=== PATIENT | female | born 1985 | race Hispanic/Latino ===

== ENCOUNTER 2020-02-12 08:05 | Emergency (ER) | payer MEDICAID ==
[2020-02-12 08:16] VITALS: BP 143/83
--- NOTE | 2020-02-12 09:20 | XRay Report ---
Right ankle-3 views Right foot-3 views INDICATION: right ankle/foot pain. COMPARISON: None. IMPRESSION: Moderate soft tissue swelling along the lateral aspect of the hindfoot/midfoot. There is a comminuted fracture of the calcaneus near the level of the anterior calcaneal process extending to the calcaneocuboid articulation with slight lateral displacement of a crescentic fracture fragment. There is mild underlying great toe MTP DJD with subchondral cystic change at the base of the proxima l phalanx. Signer Name: Benito Gonzales MD Signed: 02/12/2020 9:16 AM Workstation Name: [id number]
[2020-02-12] MEDS ORDERED: NEOMY 3.5 MG/BACIT 400 UNITS/POLY B 5000 UNITS/GM OINT PACKET TP ONE (09:40)
[2020-02-12] MEDS ORDERED: HYDROcodone/ACETAMINOPHEN 5-325 MG TAB PO ONE (09:40)
--- NOTE | 2020-02-12 10:06 | Emergency Department Report ---
ED Lower Extremity HPI - General Chief Complaint: Extremity Injury, Lower Stated Complaint: RT FOOT AND ANKLE PAIN Time Seen by Provider: 02/12/20 09:32 Source: patient Mode of arrival: Wheelchair Limitations: No Limitations - History of Present Illness Initial Comments: Patient is a 35-year-old female presents emergency room with complaints of a fall that occurred last night. Patient states that she misstepped getting off of a curb and had an eversion injury of her ankle and foot. Patient states that she also has abrasion to her right foot, right knee, right elbow. She denies any pain in the right knee or elbow. She states that her pain is mostly in her foot and her ankle. She states that she has ambulated since the end incident. She states her tetanus immunization has been within the last 5 years. She denies ever injuring these joints in the past. She states she has a past medical history of chronic back pain. No allergies to medications. Last menstrual cycle 2 weeks ago. She states that she did not drive herself to the emergency department. - Related Data Previous Rx's Medication Instructions Recorded Last Taken Type HYDROcodone/APAP 5-325 [[place] 1 each PO Q6HR PRN #12 tablet 02/12/20 Unknown Rx 5/325] Ibuprofen [Motrin 600 MG tab] 600 mg PO Q8H PRN #14 tablet 02/12/20 Unknown Rx Neomycin/Bacitracin/Polymyxinb 1 applicatio TP BID #1 oint...g. 02/12/20 Unknown Rx [Triple Antibiotic Ointment] Allergies Allergy/AdvReac Type Severity Reaction Status Date / Time No Known Allergies Allergy Unverified 02/12/20 08:14 ED Review of Systems ROS: Stated complaint: RT FOOT AND ANKLE PAIN Other details as noted in HPI Comment: All other systems reviewed and negative ED Past Medical Hx - Past Medical History Previous Medical History?: No - Surgical History Past Surgical History?: Yes Additional Surgical History: C section. reconstructive surgeries to face - Medications Home Medications: Home Medications Medication Instructions Recorded Confirmed Last Taken Type HYDROcodone/APAP 5-325 [[place] 1 each PO Q6HR PRN #12 tablet 02/12/20 Unknown Rx 5/325] Ibuprofen [Motrin 600 MG tab] 600 mg PO Q8H PRN #14 tablet 02/12/20 Unknown Rx Neomycin/Bacitracin/Polymyxinb 1 applicatio TP BID #1 oint...g. 02/12/20 Unknown Rx [Triple Antibiotic Ointment] ED Physical Exam - General Limitations: No Limitations General appearance: alert, in no apparent distress - Head Head exam: Present: atraumatic, normocephalic - Eye Eye exam: Present: normal appearance - ENT ENT exam: Present: mucous membranes moist - Respiratory Respiratory exam: Absent: respiratory distress, accessory muscle use - Extremities Exam Extremities exam: Present: other (edema, ecchymosis, and TTP to the right lateral foot and ankle, decreased ROM of the right ankle/foot secondary to pain, FROM of the right toes, there is an abrasion to the right dorsal foot just below the right little toe, there is an abrasion to the right knee and a very small abrasion to the right elbow, FROM of the right knee and right elbow with no pain, no bony ttp, no deformity, no edema, pt is neurovascularly intact througho ut) - Neurological Exam Neurological exam: Present: alert, oriented X3 - Psychiatric Psychiatric exam: Present: normal affect, normal mood - Skin Skin exam: Present: warm, dry ED Course Vital Signs 02/12/20 02/12/20 02/12/20 08:15 09:53 10:32 Temperature 98.1 F Pulse Rate 98 H Respiratory 16 18 18 Rate Blood Pressure 143/83 [Right] O2 Sat by Pulse 96 Oximetry ED Lower Extremity MDM - Radiology Data Radiology results: report reviewed Right ankle-3 views Right foot-3 views INDICATION: right ankle/foot pain. COMPARISON: None. IMPRESSION: Moderate soft tissue swelling along the lateral aspect of the hindfoot/midfoot. There is a comminuted fracture of the calcaneus near the level of the anterior calcaneal process extending to the calcaneocuboid articulation with slight lateral displacement of a crescentic fracture fragment. There is mild underlying great toe MTP DJD with subchondral cystic change at the base of the proximal phalanx. Signer Name: Benito Gonzales MD Signed: 02/12/2020 9:16 AM Workstation Name: [id number] Transcribed By: WENCESLAO Dictated By: Benito Gonzales MD Electronically Authenticated By: Benito Gonzales MD Signed Date/Time: 02/12/20915 DD/ 3 TD/TT: - Medical Decision Making Patient is a 35-year-old female presents emergency room with complaints of a fall that occurred last night. Patient states that she misstepped getting off of a curb and had an eversion injury of her ankle and foot. Patient states that she also has abrasion to her right foot, right knee, right elbow. She denies any pain in the right knee or elbow. She states that her pain is mostly in her foot and her ankle. She states that she has ambulated since the end incident. She states her tetanus immunization has been within the last 5 years. She denies ever injuring these joints in the past. She states she has a past medical history of chronic back pain. No allergies to medications. Last menstrual cycle 2 weeks ago. She states that she did not drive herself to the emergency department. VSS. on exam: edema, ecchymosis, and TTP to the right lateral foot and ankle, decreased ROM of the right ankle/foot secondary to pain, FROM of the right toes, there is an abrasion to the right dorsal foot just below the right little toe, there is an abrasion to the right knee and a very small abrasion to the right elbow, FROM of the right knee and right elbow with no pain, no bony ttp, no deformity, no edema, pt is neurovascularly intact thr oughout. XR right foot/ankle: Moderate soft tissue swelling along the lateral aspect of the hindfoot/midfoot. There is a comminuted fracture of the calcaneus near the level of the anterior calcaneal process extending to the calcaneocuboid articulation with slight lateral displacement of a crescentic fracture fragment. There is mild underlying great toe MTP DJD with subchondral cystic change at the base of the proximal phalanx. Patient given pain medication while in the ED as she did not drive and symptoms improved. Patient placed in short leg posterior splint by nurse and remained neurovascularly intact. Patient given crutches and advised not to bear weight. Patient given prescription for [place], triple abx ointment and ibuprofen. Wound care to her abrasions was performed by nurse. Advised patient Please use medication as prescribed. Do not drive, operate machinery, or work while taking pain medication. Please keep areas clean, dry, covered. May wash with antibacterial soap and water and immediately dry. No hot tub, no pool, no lee water. Please do not bear weight on your right leg until you have been cleared by an orthopedic doctor. Please follow-up with orthopedic doctor. It is very important that you follow-up with orthopedic doctor. Return to emergency room for any new or worsening symptoms. I was called by the pharmacist that patient is currently in a Suboxone program, I advised pharmacist to please discard of [place] prescription and give patient Tylenol with codeine instead - Differential Diagnosis strain, sprain, fx, dislocation, contusion Critical care attestation.: If time is entered above; I have spent that time in minutes in the direct care of this critically ill patient, excluding procedure time. ED Disposition Clinical Impression: Multiple abrasions, Pain in joint involving right ankle and foot Fracture of right calcaneus Qualifiers: Encounter type: initial encounter Calcaneus location: anterior process Fracture type: closed Fracture alignment: displaced Qualified Code(s): S92.021A - Displaced fracture of anterior process of right calcaneus, initial encounter for closed fracture Disposition: TO HOME OR SELFCARE Is pt being admited?: No Does the pt Need Aspirin: No Condition: Stable Instructions: Calcaneal Fracture (ED), Abrasion (ED) Additional Instructions: Please use medication as prescribed. Do not drive, operate machinery, or work while taking pain medication. Please keep areas clean, dry, covered. May wash with antibacterial soap and water and immediately dry. No hot tub, no pool, no lee water. Please do not bear weight on your right leg until you have been cleared by an orthopedic doctor. Please follow-up with orthopedic doctor. It is very important that you follow-up with orthopedic doctor. Return to emergency room for any new or worsening symptoms. Prescriptions: Ibuprofen [Motrin 600 MG tab] 600 mg PO Q8H PRN #14 tablet PRN Reason: Pain, Moderate (4-6) HYDROcodone/APAP 5-325 [[place] 5/325] 1 each PO Q6HR PRN #12 tablet PRN Reason: Pain , Severe (7-10) Neomycin/Bacitracin/Polymyxinb [Triple Antibiotic Ointment] 1 applicatio TP BID #1 oint...g. Referrals: PRIMARY MD DANIELLE [Primary Care Provider] - 3-5 Days OZIEL WELCH MD [Staff Physician] - 3-5 Days [facility] [Provider Group] - 3-5 Days Time of Disposition: 10:07 Print Language: SINHALA
== END 2020-02-12 10:31 | disposition home or self-care (01) ==
LOC: ED 08:05
DX: S92.001A Unspecified fracture of right calcaneus, initial encounter for closed fracture (principal); T07.XXXA Unspecified multiple injuries, initial encounter; Z98.890 Other specified postprocedural states; Z79.899 Other long term (current) drug therapy; W17.89XA Other fall from one level to another, initial encounter; Y93.89 Activity, other specified; Y92.89 Other specified places as the place of occurrence of the external cause; Y99.8 Other external cause status
CPT/HCPCS: 29515; 73610; 73630; 99283; A6250

== ENCOUNTER 2020-02-24 22:30 | Emergency (ER) | payer MEDICAID ==
--- NOTE | 2020-02-25 00:41 | XRay Report ---
RIGHT TIB-FIB 2 VIEWS INDICATION / CLINICAL INFORMATION: Pain. COMPARISON: None available. FINDINGS: BONES/JOINT(S): No acute fracture or subluxation. No significant degenerative changes. SOFT TISSUES: No significant abnormality. ADDITIONAL FINDINGS: None. Signer Name: Koby Leblanc MD Signed: 02/25/2020 12:37 AM Workstation Name: [id number]
--- NOTE | 2020-02-25 00:42 | XRay Report ---
RIGHT FOOT 3 VIEW INDICATION / CLINICAL INFORMATION: right heel pain. COMPARISON: Right ankle radiographs on 02/22/2020 FINDINGS: BONES/JOINT(S): Previously demonstrated anterior calcaneal process fracture appears unchanged. No new acute fracture or adverse change from the prior exam. SOFT TISSUES: No significant abnormality. ADDITIONAL FINDINGS: None. Signer Name: Koby Leblanc MD Signed: 02/25/2020 12:37 AM Workstation Name: [id number]
--- NOTE | 2020-02-25 01:13 | XRay Report ---
RIGHT SHOULDER 3 VIEWS INDICATION / CLINICAL INFORMATION: right shoulder pain. COMPARISON: None available. FINDINGS: BONES/JOINT(S): No acute fracture or subluxation. No significant degenerative changes. SOFT TISSUES: No significant abnormality. ADDITIONAL FINDINGS: None. Signer Name: Koby Leblanc MD Signed: 02/25/2020 1:09 AM Workstation Name: [id number]
[2020-02-25 01:53] VITALS: BP 122/70
--- NOTE | 2020-02-25 02:50 | Cat Scan Report ---
CT head/brain wo con INDICATION: Loss of consciousness.. TECHNIQUE: Routine CT head without contrast. All CT scans at this location are performed using CT dos e reduction for ALARA by means of automated exposure control. COMPARISON: None. FINDINGS: BRAIN / INTRACRANIAL CONTENTS: No acute hemorrhage, mass effect, midline shift, or hydrocephalus. No appreciable acute large territorial or lacunar infarct. No chronic infarct or focal atrophy. Normal b rain volume and ventricular/sulcal size for age. ORBITS: No significant abnormality of visualized orbits. SINUSES / MASTOIDS: No significant abnormality of visualized sinuses and mastoid air cells. ADDITIONAL FINDINGS: None. IMPRESSION: 1. No acute intracranial abnormality. Signer Name: Koby Leblanc MD Signed: 02/25/2020 2:46 AM Workstation Name: [id number]
--- NOTE | 2020-02-25 02:51 | Cat Scan Report ---
CT CERVICAL SPINE WITHOUT CONTRAST INDICATION: Loss of consciousness, right arm weakness. TECHNIQUE: Axial CT images of the spine were obtained. Sagittal and coronal reformatted images were produced. Al l CT scans at this location are performed using CT dose reduction for ALARA by means of automated exp osure control. COMPARISON: None available. FINDINGS: ACUTE FRACTURE(S) OR SUBLUXATION: None. SPINAL DEGENERATIVE CHANGES: There is mild degenerative disc disease at C5-6 with reactive endplate o steophyte formation. There is no appreciable significant spinal canal or neural foraminal narrowing. PARASPINAL SOFT TISSUES: No soft tissue swelling or other acute abnormalities. ADDITIONAL FINDINGS: No significant additional findings. IMPRESSION: 1. No acute fracture or subluxation in the spine in neutral position. Signer Name: Koby Leblanc MD Signed: 02/25/2020 2:47 AM Workstation Name: [id number]
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
== END 2020-02-25 03:56 | disposition home or self-care (01) ==
LOC: ED 22:30
DX: T71.9XXA Asphyxiation due to unspecified cause, initial encounter (principal); M50.20 Other cervical disc displacement, unspecified cervical region; R20.0 Anesthesia of skin; F17.200 Nicotine dependence, unspecified, uncomplicated; Z98.890 Other specified postprocedural states; Z79.1 Long term (current) use of non-steroidal anti-inflammatories (NSAID); Z79.899 Other long term (current) drug therapy; X58.XXXA Exposure to other specified factors, initial encounter; Y93.89 Activity, other specified; Y92.89 Other specified places as the place of occurrence of the external cause; Y99.8 Other external cause status
CPT/HCPCS: 70450; 72125; 93005

== ENCOUNTER 2020-03-08 18:51 | Emergency (ER) | payer MEDICAID ==
[2020-03-09] MEDS ORDERED: IBUPROFEN 600 MG TAB PO ONE (04:40)
[2020-03-09] MEDS ORDERED: SULFAMETHOXAZOLE/TRIMETHOPRIM 800/160MG DS TAB PO ONE (04:40)
[2020-03-09] MEDS ORDERED: BUTALB/ACETAMINOPHEN/CAFFEINE TAB PO ONE (04:40)
[2020-03-09] MEDS ORDERED: ONDANSETRON 4 MG ODT TAB PO ONE (04:41)
--- NOTE | 2020-03-09 04:45 | Emergency Department Report ---
ED General Adult HPI - General Chief complaint: Wound/Laceration Stated complaint: POSS INSECT BITE Source: patient Mode of arrival: Ambulatory Limitations: No Limitations - History of Present Illness Initial comments: Patient is a 35-year-old white female with a history of chronic back pain who presents to the ED with acute onset persistent painful swollen erythematous maculopapular nonfluctuant rash on the left frontal scalp for the last 3 days. Patient also complains of headache and anterior left cervical lymph node pain. Patient states that prior to arrival in the ED, the rash was draining purulent discharge. Patient denies change in vision, dizziness, syncope, chest pain, shortness of breath, sore throat, nausea and vomiting, fever, chills, cough, seizures, nasal and sinus congestion, traumatic injury or fall and back pain or abdominal pain. MD Complaint: Frontal scal erythematous painful swollen rash -: Sudden, days(s) (3) Location: head, face Radiation: non-radiation Severity scale (0 -10): 8 Quality: aching, sharp Consistency: constant Improves with: none Worsens with: none Associated Symptoms: denies other symptoms, headaches, loss of appetite, rash (Erythematous maculopapular nonfluctuant tender rash on the left frontal scalp). denies: confusion, chest pain, cough, diaphoresis, fever/chills, malaise, nausea/vomiting, shortness of breath, syncope, weakness, other Treatments Prior to Arrival: none - Related Data Previous Rx's Medication Instructions Recorded Last Taken Type HYDROcodone/APAP 5-325 [Laurens 1 each PO Q6HR PRN #12 tablet 02/12/20 Unknown Rx 5/325] Neomycin/Bacitracin/Polymyxinb 1 applicatio TP BID #1 oint...g. 02/12/20 Unknown Rx [Triple Antibiotic Ointment] Acetaminophen/Codeine [Tylenol 1 tab PO Q6H PRN #10 tab 03/09/20 Unknown Rx /Codeine # 3 tab] Ibuprofen [Motrin 600 MG tab] 600 mg PO Q8H PRN #30 tablet 03/09/20 Unknown Rx Sulfamethoxazole/Trimethoprim 1 each PO Q12H #20 tablet 03/09/20 Unknown Rx [Bactrim DS TAB] Allergies Allergy/AdvReac Type Severity Reaction Status Date / Time No Known Allergies Allergy Unverified 02/12/20 08:14 ED Review of Systems ROS: Stated complaint: POSS INSECT BITE Other details as noted in HPI Constitutional: denies: chills, fever Eyes: denies: eye pain, eye discharge, vision change ENT: other (Left supraorbital painful erythematous maculopapular rash). denies: ear pain, throat pain Respiratory: denies: cough, shortness of breath, wheezing Cardiovascular: denies: chest pain, palpitations Endocrine: no symptoms reported Gastrointestinal: denies: abdominal pain, nausea, diarrhea Genitourinary: denies: urgency, dysuria, discharge Musculoskeletal: denies: back pain, joint swelling, arthralgia Skin: rash (Erythematous maculopapular rash on left supraorbital area with pain), change in color. denies: lesions Neurological: denies: headache, weakness, paresthesias Psychiatric: denies: anxiety, depression Hematological/Lymphatic: denies: easy bleeding, easy bruising ED Past Medical Hx - Past Medical History Previous Medical History?: Yes Additional medical history: Spine Problems - Surgical History Additional Surgical History: C section, Tonsils, Adennoids, Right knee. reconstructive surgeries to face - Social History Smoking Status: Current Every Day Smoker Substance Use Type: None - Medications Home Medications: Home Medications Medication Instructions Recorded Confirmed Last Taken Type HYDROcodone/APAP 5-325 [Laurens 1 each PO Q6HR PRN #12 tablet 02/12/20 Unknown Rx 5/325] Neomycin/Bacitracin/Polymyxinb 1 applicatio TP BID #1 oint...g. 02/12/20 Unknow n Rx [Triple Antibiotic Ointment] Acetaminophen/Codeine [Tylenol 1 tab PO Q6H PRN #10 tab 03/09/20 Unknown Rx /Codeine # 3 tab] Ibuprofen [Motrin 600 MG tab] 600 mg PO Q8H PRN #30 tablet 03/09/20 Unknown Rx Sulfamethoxazole/Trimethoprim 1 each PO Q12H #20 tablet 03/09/20 Unknown Rx [Bactrim DS TAB] ED Physical Exam - General Limitations: No Limitations General appearance: alert, in no apparent distress - Head Head exam: Present: other (Palpable left supraorbital erythematous maculopapular nonfluctuant rash with localized tenderness) - Eye Eye exam: Present: normal appearance, PERRL, EOMI Pupils: Present: normal accommodation - ENT ENT exam: Present: normal exam, normal orophraynx, mucous membranes moist, TM's normal bilaterally, normal external ear exam - Neck Neck exam: Present: normal inspection, full ROM - Respiratory Respiratory exam: Present: normal lung sounds bilaterally. Absent: respiratory distress, wheezes, rales, rhonchi, chest wall tenderness, accessory muscle use - Cardiovascular Cardiovascular Exam: Present: regular rate, normal rhythm, normal heart sounds. Absent: systolic murmur, diastolic murmur, rubs, gallop - GI/Abdominal GI/Abdominal exam: Present: soft, normal bowel sounds. Absent: tenderness, guarding, rebound, hyperactive bowel sounds, organomegaly - Extremities Exam Extremities exam: Present: normal inspection, full ROM, normal capillary refill - Back Exam Back exam: Present: normal inspection, full ROM. Absent: tenderness, CVA tenderness (R), CVA tenderness (L), muscle spasm, paraspinal tenderness, vertebral tenderness - Neurological Exam Neurological exam: Present: alert, oriented X3, CN II-XII intact, normal gait, reflexes normal - Psychiatric Psychiatric exam: Present: normal affect, normal mood - Skin Skin exam: Present: warm, dry, intact, rash (Erythematous maculopapular nonfluctuant tender rash on left supraorbital area), erythema ED Course Vital Signs 03/08/20 03/09/20 22:13 05:57 Temperature 98.2 F 98.3 F Pulse Rate 88 75 Respiratory 18 18 Rate Blood Pressure 124/60 Blood Pressure 122/70 [Left] O2 Sat by Pulse 94 98 Oximetry ED Medical Decision Making - Medical Decision Making This is a 35-year-old white female with a history of chronic back pain who presents to the ED with acute onset persistent painful swollen erythematous maculopapular nonfluctuant rash on the left frontal scalp for the last 3 days. Patient also complains of headache and anterior left cervical lymph node pain. Patient states that prior to arrival in the ED, the rash was draining purulent discharge. In the ED, patient is alert and oriented x3 and is not in distress. Patient was treated for pain in the ED and also given initial oral antibiotics. Patient is hemodynamically stable in the ED. Patient will discharge home on pain medications and oral antibiotics and was advised to follow-up with her p rimary care physician in 7 to 10 days for reevaluation or return to the ED immediately if symptoms get worse. - Differential Diagnosis Acute folliculitis; facial cellulitis; abscess; Critical care attestation.: If time is entered above; I have spent that time in minutes in the direct care of this critically ill patient, excluding procedure time. ED Disposition Clinical Impression: Facial cellulitis, Acute folliculitis Disposition: TO HOME OR SELFCARE Is pt being admited?: No Does the pt Need Aspirin: No Condition: Stable Instructions: Cellulitis (ED), Folliculitis (ED) Additional Instructions: Take medication with food, drink plenty of fluids and follow-up with your primary care physician in 7 to 10 days for reevaluation. Return to the ED immediately if symptoms get worse. Prescriptions: Sulfamethoxazole/Trimethoprim [Bactrim DS TAB] 1 each PO Q12H #20 tablet Ibuprofen [Motrin 600 MG tab] 600 mg PO Q8H PRN #30 tablet PRN Reason: Pain , Severe (7-10) Acetaminophen/Codeine [Tylenol /Codeine # 3 tab] 1 tab PO Q6H PRN #10 tab PRN Reason: Pain , Severe (7-10) Referrals: PARISH RAHMAN MD [Primary Care Provider] - 3-5 Days Forms: Work/School Release Form(ED) Time of Disposition: 04:44 Print Language: IRISH
[2020-03-09 05:58] VITALS: BP 122/70
== END 2020-03-09 05:56 | disposition home or self-care (01) ==
LOC: ED 18:51
DX: L03.211 Cellulitis of face (principal); L73.8 Other specified follicular disorders; F17.200 Nicotine dependence, unspecified, uncomplicated; Z98.890 Other specified postprocedural states; Z79.899 Other long term (current) drug therapy
CPT/HCPCS: 99282; Q0162

== ENCOUNTER 2020-09-17 15:37 | Emergency (ER) | payer MEDICAID | END 2020-09-17 19:07 | disposition left against medical advice (07) | LOC: ED 15:37 | DX: R05 Cough (principal); Z53.21 Procedure and treatment not carried out due to patient leaving prior to being seen by health care provider ==